=== PATIENT | female | born 1955 | race African-American/Black ===

== ENCOUNTER 2019-05-25 22:46 | Emergency (ER) | payer MEDICAID ==
[~2019-05-25] VITALS: Ht 170.2 cm; Wt 65.0 kg
--- NOTE | 2019-05-25 23:00 | NUR ---
PT ASSISTED UP TO BSC. PT UNSTEADY, NEEDING ASSISTANCE WITH 1-2 PERSONS. REPORT TO JANET LAUREANO, TRANSFER OF CARE AT THIS TIME.
--- NOTE | 2019-05-25 23:32 | NUR ---
THIS IS A 63Y F BIB EMS PT WAS WALKING [place] [employer] SAW PT FALL WHILE WALKING, EMS CALLED. PT DENIES PAIN/ N/V/ LOC. PT HAD APROX 1-1.5PTS OF LIQUOR AFTER WORK TODAY. PT DENIES ANY MEDICAL CONCERNS AT THIS TIME. PT CONNECTED TO MONITORING VSS, NADN.
[2019-05-26 00:43] VITALS: BP 115/71
--- NOTE | 2019-05-26 00:43 | NUR ---
PT RESTING ON GURNEY EYES CLOSED, LIGHTS DIMMED. NADN, VSS
--- NOTE | 2019-05-26 01:32 | NUR ---
PT PROVIDED WITH WATER AND SPRITE REQUESTED, PT REMAINS IN [facility] AND NO FURTHER NEEDS AT THIS TIME
--- NOTE | 2019-05-26 02:10 | NUR ---
ATTEMPTED TO AMBULATED PT, UNABLE TO DO SO DUE TO UNSTEADY PT GAIT, PT REQUIRES ASSISTANCE TO AMBULATE MORE THAN TWO STEPS. MD BRADLEY
--- NOTE | 2019-05-26 03:29 | NUR ---
PT ASSISTED TO BSC, PT CONTINUES TO HAVE UNSTEADY GAIT
--- NOTE | 2019-05-26 04:46 | NUR ---
PT ABLE TO AMBULATE WITHOUT ASSIST
--- NOTE | 2019-05-26 04:47 | NUR ---
Patient/Caregiver given discharge instructions and they have confirmed that they understand the instructions. Patient ambulatory with steady gait.
== END 2019-05-26 04:49 | disposition home or self-care (01) ==
LOC: ED 05-26 04:18
DX: F10.120 Alcohol abuse with intoxication, uncomplicated (principal); Y90.9 Presence of alcohol in blood, level not specified
CPT/HCPCS: 99283